=== PATIENT | male | born 1995 | race African-American/Black ===

== ENCOUNTER 2023-07-03 09:18 | Emergency (ER) | payer OTHER, SELFPAY ==
[2023-07-03 09:21] VITALS: BP 140/104; PULSE 88; RESP 16; TEMP 36.7; O2SAT 100; BMI 35.9
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
--- NOTE | 2023-07-03 10:12 | ED.RN ---
pt does not have information to call employer. 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 pt to call employer and f/u [facility] pro or corprate care per employer direction. discussed urgency to this.
--- NOTE | 2023-07-03 10:15 | ED.RN ---
inadvertently d/c prior to being registered. Registration notified
--- OUTSIDE RECORDS SUMMARY | 2023-07-03 12:50 | XMS RPT_ITS | CCD ---
Author Name Unknown Address [address] [place] [address] Organization [facility] Care Team Providers Care Quality Control Industrial Engineer Name Role Phone No, Physician Primary Care Provider UnavailIRISH Luna Attending Unavailable NO, PHYSICIAN Primary Care Unavailable Medications Current Medications Medication Drug Class(es) Dates Sig (Normalized) Sig (Original) fluticasone propionate 0.05 mg/actuat metered dose nasal spray (1 source) Corticosteroid Start: 06-17-2019 End: 06-16-2020 take 2 spray(s) nasal route once daily fluticasone propionate (FLONASE) 50 mcg/actuation nasal spray Instill 2 (two) sprays into each nostril daily . 16 g 0 06/17/2019 06/16/2020 Active Completed/Discontinued Medications Medication Drug Class(es) Dates Sig (Normalized) Sig (Original) acetaminophen 325 mg oral tablet (1 source) Start: 06-17-2019 End: 06-17-2019 acetaminophen (TYLENOL) tablet 975 mg diphenhydrAMINE hydrochloride 25 mg oral tablet (1 source) Histamine-1 Receptor Antagonist Start: 06-17-2019 End: 06-17-2019 diphenhydrAMINE (BENADRYL) oral solid 50 mg ibuprofen 400 mg oral tablet (1 source) Nonsteroidal Anti-inflammatory Drug Start: 06-17-2019 End: 06-17-2019 ibuprofen (ADVIL,MOTRIN) tablet 400 mg ondansetron 4 mg disintegrating oral tablet (1 source) Serotonin-3 Receptor Antagonist Start: 06-17-2019 End: 06-17-2019 ondansetron (ZOFRAN-ODT) disintegrating tablet 4 mg Problems Problem Classification Problem Date Documented Da te Episodic/Chronic Headache; including migraine (1 source) Headache; Translations: [Nonintractable headache, unspecified chronicity pattern, unspecified headache type] Episodic Other upper respiratory disease (1 source) Allergic rhinitis; Translations: [Allergic rhinitis, unspecified seasonality, unspecified trigger] Chronic Vital Signs Date Time Vital Sign Value Performing Clinician Comfort ricardo 06-17-2019 15:20-0500 BMI (Body Mass Index) 23.92 kg/m2 [facility] 06-17-2019 15:20-0500 Body Temperature 97.59 [degF] [facility] 06-17-2019 15:20-0500 Body weight 73.[address] [facility] 06-17-2019 15:20-0500 BP Diastolic 89 mm[Hg] [facility] 06-17-2019 15:20-0500 BP Systolic 142 mm[Hg] [facility] 06-17-2019 15:20-[address] [facility] 06-17-2019 15:20-0500 Pulse (Heart Rate) 71 /min [facility] 06-17-2019 15:20-0500 Pulse Oximetry 99 % [facility] 06-17-2019 15:20-0500 Respiratory Rate 16 /min [facility] Encounters Encounter Date Encounter Type Care Provider Facility Start: 06-17-2019 End: 06-17-2019 [facility] [place] Start: 06-17-2019 End: 06-17-2019 Emergency department patient visit Irish [facility] Work Phone: [place] [facility] Social History Date Type Detail Facility Start: 06-17-2019 Tobacco smoking status NHIS Never sm oker [facility] Start: 06-17-2019 Alcohol intake Ex-drinker (finding) [facility] Sex Assigned At Not on file [facility] alth Discharge Instructions * Instructions* Lila Ramirez, SALT PLANT OPERATOR - 06/17/2019 Take the medication prescribed you today as directed. Please follow-up with primary care as discussed. Contact information is listed above for to primary care providers. * Attachments The following attachments cannot be sent through Care Everywhere. 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 : 1995 VISIT DATE: 06/17/2019 CSN: [id number] PCP: No primary care provider on file. Chief Complaint Patient presents with Headache Patient presents to ED with complaints of headache, states has had issues with headaches every single day for the last 4 years. He denies fever chills neck pain nausea vomiting dizziness photophobia and phonophobia. Denies thunderclap type headache, denies that this is the worst headache of his life. Tells me it seems like I have them more in the wintertime . History reviewed. No pertinent past medical history. History reviewed. No pertinent surgical history. History reviewed. No pertinent family history. Social History Socioeconomic History Marital status: Not on file Spouse name: Not on file Number of children: Not on file Years of education: Not on file Highest education level: Not on file Occupational History Not on file Social Needs Financial resource strain: Not on file Food insecurity Worry: Not on file Inability: Not on file Transportation needs Medical: Not on file Non-medical: Not on file Tobacco Use Smoking status: Never Smoker Smokeless tobacco: Never Used Substance and Sexual Activity Alcohol use: Not Currently Drug use: Never Sexual activity: Not on file Lifestyle Physical activity Days per week: Not on file Minutes per session: Not on file Stress: Not on file Relationships Social connections Talks on phone: Not on file Gets together: Not on file Attends yazidi service: Not on file Active member of club or organization: Not on file Attends meetings of clubs or organizations: Not on file Relationship status: Not on file Other Topics Concern Not on file Social History Narrative Not on file No current outpatient medications on file prior to encounter. No Known Allergies Review of Systems Constitutional: Negative. HENT: Negative. Eyes: Negative. Respiratory: Negative. Cardiovascular: Negative. Gastrointestinal: Negative. Genitourinary: Negative. Musculoskeletal: Negative. Skin: Negative. Neurological: Positive for headaches. Negative for dizziness, tremors, seizures, syncope, facial asymmetry, speech difficulty, weakness, light-headedness and numbness. Hematological: Negative. Patient Vitals for the past 24 hrs: BP Temp Pulse Resp SpO2 Height Weight 06/17/19 1520 (!) 142/89 97.6 F (36.4 C) 71 16 99 % 5' 9 73.5 kg (162 lb) Physical Exam Constitutional: Appearance: Normal appearance. HENT: Head: Normocephalic and atraumatic. Right Ear: Tympanic membrane, ear canal and external ear normal. Left Ear: Tympanic membrane and external ear normal. Nose: Comments: Bilateral nasal polyps, left larger than right. Mouth/Throat: Mouth: Mucous membranes are moist. Pharynx: Oropharynx is clear. Eyes: Extraocular Movements: Extraocular movements intact. Conjunctiva/sclera: Conjunctivae normal. Pupils: Pupils are equal, round, and reactive to light. Neck: Musculoskeletal: Normal range of motion and neck supple. Cardiovascular: Rate and Rhythm: Normal rate and regular rhythm. Pulses: Normal pulses. Heart sounds: Normal heart sounds. Pulmonary: Effort: Pulmonary effort is normal. Breath sounds: Normal breath sounds. Abdominal: General: Abdomen is flat. Bowel sounds are normal. Palpations: Abdomen is soft. Musculoskeletal: Normal range of motion. Skin: General: Skin is warm and dry. Capillary Refill: Capillary refill takes less than 2 seconds. Neurological: General: No focal deficit present. Mental Status: He is alert and oriented to person, place, and time. Laboratory & Radiographic Imaging (if done): No results found for this visit on 06/17/19. No orders to display Procedures MDM Number of Diagnoses or Management Options Allergic rhinitis, unspecified seasonality, unspecified trigger: Nonintractable headache, unspecified chronicity pattern, unspecified headache type: Diagnosis management comments: Upon examination, patient sitting up in chair no distress noted. Alert oriented pleasant cooperative answering questions appropriately. Quite nontoxic and [id number]. Headaches daily for the last 4 years. Nothing new with his headache today. Polyps noted to bilateral nares, left larger than right. Patient given dose of Benadryl, Tylenol, Motrin, and Zofran here. Will be discharged home with prescription for Flonase. He verbalizes understanding he needs to follow-up with primary care, tells me he does not have a primary care physician, I did give him the contact information for the on-call internal medicine provider Dr. Dutta as well as [facility] contact information. Patient in agreement to treatment plan and discharge home. The patient has been informed that they may have pre-hypertension or hypertension based on a blood pressure reading in the Emergency Department. I recommend that the patient call the primary care provider listed on their discharge instructions or a physician of their choice as soon as possible to arrange follow-up in the next 4 weeks for further evaluation of possible pre-hypertension or hypertension. . Clinical Impression: 1. Nonintractable headache, unspecified chronicity pattern, unspecified headache type 2. Allergic rhinitis, unspecified seasonality, unspecified trigger ED Disposition None Follow-up Information 1. Rory Dutta MD. Specialty: Internal Medicine Why: Call today to arrange for follow-up [address] [place] [phone] 2[address] [facility]. Why: Call today to arrange for follow-up [address] [place] [phone] Contact information for after-discharge care Follow-up information has not been specified. Lila Ramirez CNP 06/17/19 1524 documented in this encounter (unrecognized sect ion and content) No Status Records Found INFORMATION SOURCE (unrecogn ized section and content) FOR RECORDS PERTAINING TO PATIENTS WHO ARE OR HAVE BEEN ENROLLED IN A CHEMICAL DEPENDENCY/SUBSTANCEABUSE PROGRAM, SOME INFORMATION MAY BE OMITTED. This clinical summary was aggregated from multiple sources. Caution should be exercised in using it in the provision of clinical care. This summary normalizes information from multiple sources, and as a consequence, information in this document may materially change the coding, format and clinical context of patient data. In addition, data may be omitted in some cases. CLINICAL DECISIONS SHOULD BE BASED ON THE PRIMARY CLINICAL RECORDS. [facility]. provides no warranty or guarantee of the accuracy or completeness of information in this document.
== END 2023-07-03 10:10 | disposition home or self-care (01) ==
PROVIDERS: Emergency Provider Emergency Medicine; Visit Provider Emergency Medicine
DX: S39.012A Strain of muscle, fascia and tendon of lower back, initial encounter (principal); R51.9 Headache, unspecified; V69.49XA Driver of heavy transport vehicle injured in collision with other motor vehicles in traffic accident, initial encounter; Y92.410 Unspecified street and highway as the place of occurrence of the external cause
CPT/HCPCS: 99283